=== PATIENT | female | born 1950 | race Caucasian/White ===

== ENCOUNTER 2021-12-03 09:58 | Emergency (ER) | payer MEDICARE, BC ==
[2021-12-03] MEDS ORDERED: Ketorolac 15 MG/ML SDV IVPUSH ONE (10:16)
[2021-12-03] MEDS ORDERED: SODIUM CHLORIDE 0.9% IV ONE (10:16)
[2021-12-03] MEDS ORDERED: CHLORPROMAZINE IV ONE (10:16)
[2021-12-03] MEDS ORDERED: Sodium Chloride 0.9% 500 ML IV ONE (10:17)
[2021-12-03 10:39] LABS: CHLORIDE,CL 105 mmol/L (98-107); SODIUM,NA 141 mmol/L (136-145)
[2021-12-03 10:40] LABS: ANION GAP 11.8 mmol/L (5-15); ESTIMATED GFR 61 mL/min (>=60)
[2021-12-03] MEDS ORDERED: HYDROmorphone 0.5 MG/0.5 ML Syringe IVPUSH ONE (10:47)
[2021-12-03] MEDS ORDERED: Take Home: Acetaminophen/HYDROcodone 325-10 MG, 5 Tab Pack PO ONE (13:14)
[2021-12-03] MEDS ORDERED: Take Home: Ondansetron 4 MG Tab.DIS, 5 Tab Pack PO ONE (13:14)
[2021-12-03] MEDS ORDERED: Tamsulosin 0.4 MG Cap.ER PO ONE (13:15)
[2021-12-03] MEDS ORDERED: Tamsulosin 0.4 MG Cap.ER ONE ×2 (13:44→14:02)
== END 2021-12-03 13:45 | disposition home or self-care (01) ==
LOC: VM.ED 09:58
DX: N20.0 Calculus of kidney (principal); R06.6 Hiccough; E66.9 Obesity, unspecified; Z68.33 Body mass index [BMI] 33.0-33.9, adult; Z88.0 Allergy status to penicillin; Z79.899 Other long term (current) drug therapy
CPT/HCPCS: 36415; 80048; 81001; 85025; 96361; 96365; 96375; 99284; A9270; J1170; J1885; J3230; J3490; J7030; Q0162

== ENCOUNTER 2023-09-27 11:55 | Inpatient (IN) | payer MEDICARE, BC ==
[2023-09-27] MEDS ORDERED: HYDROmorphone 2 MG Tab PO PRN (15:36)
[2023-09-27] MEDS ORDERED: Hypromellose 0.3% Ophth Soln 15 ML Bottle EYEBOTH PRN (15:36)
[2023-09-27] MEDS ORDERED: Ondansetron 4 MG Tab.DIS PO PRN (15:40)
[2023-09-27] MEDS: Acetaminophen 500 MG Tab PO PRN (16:52)
[2023-09-27] MEDS ORDERED: Acetaminophen/oxyCODONE 325-5 MG Tab PO PRN (17:44)
[2023-09-27] MEDS: Gabapentin 300 MG Cap **OWN MED PO SCH (20:35)
[2023-09-27] MEDS: Docusate Sodium 100 MG Cap PO SCH (20:35)
[2023-09-28] MEDS: Acetaminophen/oxyCODONE 325-5 MG Tab **OWN MED PO PRN (04:09)
[2023-09-28] MEDS: Aspirin 81 MG Tab.EC PO SCH (08:25)
[2023-09-28] MEDS: Ferrous Sulfate 325 MG Tab PO SCH (08:25)
[2023-09-28] MEDS: AREDS PO SCH (08:27)
[2023-10-06] MEDS: Cyclobenzaprine 10 MG Tab **OWN MED PO PRN (21:24)
== END 2023-10-11 17:44 | disposition home or self-care (01) | DRG 561 ==
LOC: VM.MS 14:38
PROVIDERS: ADMIT Nurse Practitioner Family; ATTEND Nurse Practitioner Family
DX: Z47.1 Aftercare following joint replacement surgery (principal); R53.1 Weakness; E66.9 Obesity, unspecified; Z88.0 Allergy status to penicillin; Z79.82 Long term (current) use of aspirin; Z79.899 Other long term (current) drug therapy; Z68.38 Body mass index [BMI] 38.0-38.9, adult; Z98.49 Cataract extraction status, unspecified eye; Z98.890 Other specified postprocedural states; Z96.653 Presence of artificial knee joint, bilateral
CPT/HCPCS: 97110-GP; 97116-GP; 97140-GP; 97161-GP; 97165-GO; 97530-GO; 97530-GP; 97535-GO; A9270-GY; G0283-GP

== ENCOUNTER 2024-11-23 11:01 | Day surgery (SDC) | payer MEDICARE, BC ==
[~2024-11-23 11:01] MED LIST: Lactated Ringers 1,000 ML IV SCH; Propofol 200 MG/20 ML SDV ONE; fentaNYL 100 MCG/2 ML SDV ONE
== END 2024-11-23 13:44 | disposition home or self-care (01) ==
LOC: VM.SDS 11:01
PROVIDERS: ATTEND Surgery
DX: Z12.11 Encounter for screening for malignant neoplasm of colon (principal); I10 Essential (primary) hypertension; E66.9 Obesity, unspecified; Z68.39 Body mass index [BMI] 39.0-39.9, adult; Z79.899 Other long term (current) drug therapy
CPT/HCPCS: 00812; 99100; J2704; J3010